=== PATIENT | female | born 1965 | race Caucasian/White ===

== ENCOUNTER → 2016-09-29 12:37 | Outpatient (CLI) | payer MEDICAID ==
[2015-10-13 11:22] VITALS: BMI 28.7
[~2016-09-29 12:37] MED LIST: DEMEROL50 MG PO; DILAUDID2 MG PO; MOBIC7.5 MG PO; TYLENOL PM1 TAB PO
== END | disposition home or self-care (01) ==
LOC: D.CT 12:37
DX: M25.562 Pain in left knee (principal)

== ENCOUNTER 2016-11-15 07:48 | Day surgery (SDC) | payer MEDICAID ==
[~2016-11-15] VITALS: Ht 149.9 cm; Wt 63.5 kg
[2016-11-15 09:19] LABS: HEMATOCRIT 39.5 % (36.0-48.0); HEMOGLOBIN 13.4 g/dL (12-16); MCH 31.3 pg (26.0-34.0); MCHC 33.9 g/dL (31.0-37.0); MCV 92.3 fL (80.0-100.0); MEAN PLATELET VOLUME 9.2 fL (7.4-10.4); RBC 4.28 10x6/uL (4.00-5.40); RDW 12.8 % (11.5-14.5); WBC 7.1 10x3/uL (4.8-10.8)
[2016-11-15] MEDS ORDERED: VOLTAREN100 MG (09:33)
[2016-11-15 09:36] VITALS: BP 145/72; Ht 149.9 cm; Wt 63.5 kg
--- NOTE | 2016-11-15 10:41 | NUR ---
PROCEEDURE ON PT CART
[2016-11-15] MEDS ORDERED: MEPERIDINE HCL50 MG PO (10:44)
--- NOTE | 2016-11-15 12:34 | NUR ---
1055-RECD TO ROOM FROM SURGERY 1115-FULL LIQUIDS SERVED 1200-IV D.C. AND DISCHARGE INSTRUCTIONS REVIEWED. 1230- HERE, D/C HOME VIA WHEELCHAIR
== END 2016-11-15 12:30 | disposition home or self-care (01) ==
LOC: D.OPS 07:48 → D.PAN 12:15 → D.OPS 12:15
PROVIDERS: Anesthesiology
DX: M25.662 Stiffness of left knee, not elsewhere classified (principal); M25.562 Pain in left knee; W19.XXXA Unspecified fall, initial encounter; Z01.812 Encounter for preprocedural laboratory examination